=== PATIENT | female | born 1985 | race Caucasian/White ===

== ENCOUNTER → 2019-02-14 13:16 | Outpatient (CLI) | payer OTHER, SELFPAY ==
[2019-02-15 15:59] LABS: HPV Reflexed? NOT INDICATED
== END ==
PROVIDERS: Family Provider Family Medicine; PCP Family Medicine; Visit Provider Obstetrics & Gynecology
DX: Z12.4 Encounter for screening for malignant neoplasm of cervix (principal)
CPT/HCPCS: 88175; G0145

== ENCOUNTER → 2020-03-13 12:26 | Outpatient (CLI) | payer BC, SELFPAY ==
[2017-01-11 12:00] VITALS: BMI 28.8
[2020-03-13 13:08] LABS: Absolute Lymphocyte Count 1.85 X10^3/uL (0.83-4.51); Absolute Neutrophil Count 8.6 X10^3/uL (2.0-7.7); Basophil# 0.05 X10^3/uL; Basophil% 0.4 % (0-1); Eosinophil# 0.29 X10^3/uL; Eosinophils% 2.6 % (0-5); Hematocrit 45.6 % (37-47); Hemoglobin 15.2 g/dL (12.0-15.0); Lymphocyte # 1.85 X10^3/ul (4.0); Lymphocyte % 16.4 % (19-41); Mean Corp Hgb Conc 33.3 g/dL (32-36); Mean Corpuscular Hgb 29.8 pg (27.0-32.0); Mean Corpuscular Volume 89.4 fL (81-99); Mean Platelet Vol. 11.5 fl (6.2-12.0); Monocyte# 0.45 X10^3/uL; NRBC Flagged by Analyzer 0 % (0-5); Neutrophil # 8.56 X10^3/uL (2.7-7.7); Neutrophil % 75.8 % (47-70); Platelet Count 243 K/mm3 (150-450); RBC Distribution Width CV 13.2 % (11.6-14.6); White Blood Count 11.3 K/mm3 (4.4-11.0)
[2020-03-13 13:35] LABS: Thyroid Stim Hormone (TSH) 1.65 uIU/mL (0.358-3.74)
[2020-03-13 13:54] LABS: Color, Urine Yellow (Yellow); Glucose, Dipstick Normal (Normal); Ketone-Dipstick 5 mg/dl (Negative); Leukocyte Esterase-Dipstick Negative /ul (Negative); Nitrite-Dipstick Negative (Negative); Occult Blood-Urine Negative /ul (Negative); Protein-Dipstick Negative (Negative); Specific Gravity, Urine 1.025 (1.002-1.030); Urine Bilirubin Dipstick Negative (Negative); Urine Clarity Clear (Clear); Urine Urobilinogen 1 mg/dl (Normal)
[2020-03-13 14:01] LABS: Amphetamine Urine VISTA NEGATIVE (<1000 ng/mL); Barbiturate Urine VISTA NEGATIVE (< 200 ng/mL); Benzodiazepine Urine VISTA NEGATIVE (< 200 ng/mL); Cocaine Urine VISTA NEGATIVE (< 300 ng/mL); Ecstacy Urine VISTA NEGATIVE (< 500 ng/mL); Methadone Urine VISTA NEGATIVE (< 300 ng/mL); PCP Urine VISTA NEGATIVE (< 25 ng/mL); THC Urine VISTA NEGATIVE (< 50 ng/mL); Vista UDS pH Range 5
[2020-03-13 14:06] LABS: HIV - WCH Non-Reactive (Nonreactive); Hepatitis B Surface Antigen Non-Reactive (Nonreactive); Hepatitis C Antibody Non-Reactive (Nonreactive); Rubella IgG 10.2 IU/mL
[2020-03-13 16:04] LABS: Chlamydia Trachomatis by PCR Negative (Negative); Neisserai gonorrhoeae by PCR Negative (Negative); Probe Check PASS; Sample Adequacy Control PASS; Specimen Processing Control PASS
[2020-03-19 04:31] LABS: Prenatal RPR NONREACTIVE (NONREACTIVE)
== END ==
PROVIDERS: PCP Nurse Practitioner Primary Care; Referring Provider Obstetrics & Gynecology; Visit Provider Obstetrics & Gynecology
DX: Z34.81 Encounter for supervision of other normal pregnancy, first trimester (principal)
CPT/HCPCS: 36415; 80307; 81002; 84443; 85025; 86703; 86762; 86803; 87340; 87491; 87591

== ENCOUNTER → 2020-07-16 06:56 | Outpatient (CLI) | payer BC, SELFPAY ==
[2020-07-16 07:44] LABS: Glucose 94 mg/dL (74-106)
[2020-07-16 09:51] LABS: Glucose 120 mg/dL (74-106)
[2020-07-16 14:24] LABS: Hemoglobin 11.8 g/dL (12.0-15.0); Mean Corp Hgb Conc 32.8 g/dL (32-36); Mean Corpuscular Hgb 30.6 pg (27.0-32.0); Mean Corpuscular Volume 93.3 fL (81-99); Mean Platelet Vol. 12.6 fl (6.2-12.0); Platelet Count 192 K/mm3 (150-450); RBC Distribution Width CV 14.3 % (11.6-14.6); RBC Distribution Width SD 48.2 fl (35.1-43.9); Red Blood Count 3.86 M/mm3 (4.2-5.4)
== END ==
PROVIDERS: PCP Nurse Practitioner Primary Care; Referring Provider Obstetrics & Gynecology; Visit Provider Obstetrics & Gynecology
DX: Z34.82 Encounter for supervision of other normal pregnancy, second trimester (principal)
CPT/HCPCS: 36415; 82947; 85027; 86850

== ENCOUNTER → 2020-09-03 16:47 | Outpatient (CLI) | payer BC, SELFPAY ==
[2017-01-11 12:00] VITALS: BMI 28.8
[2020-09-03 19:40] LABS: Group B Strep DNA By PCR Negative (Negative); Internal Control PASS; Probe Check PASS; Specimen Processing Control PASS
== END ==
PROVIDERS: PCP Nurse Practitioner Primary Care; Visit Provider Obstetrics & Gynecology
DX: Z36.85 Encounter for antenatal screening for Streptococcus B (principal)
CPT/HCPCS: 87081; 87653

== ENCOUNTER 2020-09-05 01:30 | Inpatient (IN) | payer BC, SELFPAY ==
[2017-01-11 12:00] VITALS: BMI 28.8
[2020-09-05] VITALS (23 sets, daily range): BP systolic 95–130; BP diastolic 51–80; PULSE 56–100; RESP 14–18; TEMP 36–36.8; O2SAT 97–100; BMI 29.6
--- NOTE | 2020-09-05 | PLAC_PTH ---
PATIENT: MICALEA INFANTE LOC: WP U#:[id number] AGE/SX: 34/F ROOM: WP007 RE09/05/[address]: Dr. Kem Ac MD : 1985 BED: 1 DIS: 09/06/2020 SPEC #: [id number] RECD: 09/05/20 14:27 STATUS: TYRA REQ #: [id number] GRIFFIN: 09/05/20 00:[address]: Kem Ac DEPT: SURGICAL PATHOLOGY RECD BY: Inderjit Martinez ENTERED: 09/07/20 10:18 SP TYPE: PLACENTA OTHR DR: Leti Cardozo, STAFF FORESTER-C Tissues: Placenta, NOS Procedures: Surgery Specimen Level V HEADER OPERATION: Repeat section PRE-OP DIAGNOSIS: Labor TISSUE SUBMITTED: Placenta MICROSCOPIC DIAGNOSIS Placenta: Placental disc - third trimester placenta (737 gm). - A focal area of intraparenchymal hemorrhage (1 cm in greatest dimension). Membranes - no pathologic diagnosis. Umbilical cord - three blood vessels and no pathologic diagnosis. KODY:radhames 09/08/20 MICROSCOPIC DESCRIPTION Slides are reviewed. GROSS DESCRIPTION SPECIMEN: PLACENTA / CLINICAL INFORMATION: A. Weight: 3.47 kg B. Gestational Age: 36 weeks C. Sex: Female PLACENTAL WEIGHT (POST FIXATION): 737 gm PLACENTAL DIMENSIONS: 20 x 22 x 4 cm PLACENTAL SHAPE: Usual ovoid PLACENTAL WEIGHT FOR GESTATIONAL AGE: >99th percentile MEMBRANES - Present A. Insertion: Marginal B. Site of rupture from edge: At edge of placental disc C. Color of membrane: Romano-santos D. Abnormalities: None UMBILICAL CORD - Present A. Color: Romano-santos B. Insertion: Central C. Length: 37 cm D. Diameter: 1.3 cm E. Number of vessels: Three F. Abnormalities: None PLACENTAL DISC - Present A. Color of surface: Romano-santos B. surface abnormalities: None C. Maternal cotyledons: Mostly intact with minimal tears. A few blood clots are noted on the maternal surface. D. Attached retro placental clot: No clot E. Cut surface: Dark red and spongy F. Lesions: Sections reveal a romano, indurated area measuring 1 cm in greatest dimension. The maternal surface is disrupted in this area. G. Separate clot: Absent SECTIONS SUBMITTED: 1. Membrane roll 2. Cord, maternal end 3. Cord, end 4. Placental disc, and maternal surfaces, lesion 5. Placental disc, and maternal surfaces 6. Placental disc, and maternal surfaces SJ:radhames 09/07/20 TC:5 CPT: 52750
[2020-09-05 02:12] LABS: Hematocrit 40.4 % (37-47); Hemoglobin 13.7 g/dL (12.0-15.0); Mean Corp Hgb Conc 33.9 g/dL (32-36); Mean Corpuscular Volume 88.4 fL (81-99); Mean Platelet Vol. 13.5 fl (6.2-12.0); NRBC Flagged by Analyzer 0 % (0-5); Platelet Count 162 K/mm3 (150-450); RBC Distribution Width CV 14.1 % (11.6-14.6); Red Blood Count 4.57 M/mm3 (4.2-5.4); White Blood Count 16.2 K/mm3 (4.4-11.0)
[2020-09-05 02:14] LABS: Absolute Lymphocyte Count 3.46 X10^3/uL (0.83-4.51); Absolute Neutrophil Count 11.6 X10^3/uL (2.0-7.7); Basophil% 0.5 % (0-1); Eosinophil# 0.24 X10^3/uL; Eosinophils% 1.4 % (0-5); Lymphocyte # 3.46 X10^3/ul (4.0); Lymphocyte % 20.9 % (19-41); Monocyte# 1.03 X10^3/uL; Monocyte% 6.2 % (0-10); Neutrophil # 11.57 X10^3/uL (2.7-7.7); Neutrophil % 69.8 % (47-70)
[2020-09-05 02:15] LABS: Basophil# 0.08 X10^3/uL
[2020-09-05] MEDS: Cefazolin 2 GM in 0.9% Normal Saline 100 ML IV (02:35)
--- NOTE | 2020-09-05 02:45 | NURSING ---
Report received form Hanna JAMES, taking over pt care at this time.
--- NOTE | 2020-09-05 03:52 | PCM.HP.BLA ---
History and Physical Date of Admission: 09/05/20 ACOG ANTEPARTUM RECORD - HISTORY AND PHYSICAL (09/05/2020) Name: MICAELA INFANTE History of This : This is a 34-year-old G2, P1 who presents to labor and delivery with ruptured membranes and late stage active labor. care is remarkable for a prior section for failure to progress after 3 hours of pushing. Repeat was planned. Patient is at 36+4 weeks gestation today. OB Physician: PHI 's Physician: NIRAV mandel ...................................................................... : 1985 Age: 34 Address: [address] [place] [address] Phone: H) [phone] Insurance Carrier: [employer] [facility] [id number] Emergency Contact: SHIRAZ SANTINOJERRYWilla [phone] ...................................................................... Final OSIRIS: 09/29/20 By Ultrasound: 11 weeks 3 days PARITY: (G-Total Pregnancies P-Fullterm,Premature,Induced AB,Spont AB, Ectopics, Multiple,Living) OSIRIS CONFIRMATION: By LMP: 04/13/16 Final OSIRIS: 09/29/20 OB PROBLEM LIST: Probably wishes RCS over TOLAC. declines AFP also declines CF FOB with Cerebral Palsy Plans FBS and 2 hr PP instead of 1 hour GTT --FBS and 2 hour PP normal. Prior for FTP after 3.5 hours pushing; discussed vs Repeat -- plan R- ALLERGIES: Codeine Intolerance-unknown MEDICATIONS: folic acid 1 mg tablet One pill by mouth once a day iron 18 mg tablet One pill by mouth once a day omeprazole 20 mg capsule,delayed release One pill by mouth once a day Supplement (s) [No Strength] As Directed plexus vitamin Supplement (s) [No Strength] Plexus, Slim, Bio Cleanse, Pro Bio 5 SOCIAL HISTORY: Smoking - Never Alcohol Use - None Diet - caffeine < 2 drinks per day and dairy and gluten free. water- goal 100. Lifestyle - Exercise - walking and 2 m q am. 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 Illicit Drug Use - denies use of street drugs Sexual Activity - Residence - lives with Hours Worked - 50 Spouse-Sig Other Name - Robin (has CP.) Spouse-Sig Other Occupation - TOOL MACHINIST - [employer] Spouse-Sig Other Phone No - [phone] cell Children Name(s) - Tahmina (ARIEL) PRIOR DELIVERY HISTORY DEL DATE GEST LAB WT LB WT OZ TYPE ANES LABOR TX 27 Oct 17 39 20 8 0 C-Sec Epidural No ANTEPARTUM FLOW CHART VISIT GE RTC FU F F CO U U DATE WK MD WKS HT PN HR M SS BP ED WT CO GL D EF ST __ ____ ___ __ __ ___ __ __ __ ___ __ __ __ ___ __ 17 Aug JMW 1 36 V + + 120/74 0 178 - - ft 50 hi Aug JMW 2 34 + + 128/60 sl 179 - - Jul JM 2 32 V + + 122/66 0 175 ne ne Jul 16 JMW 3 29 + + 102/60 sl 171 tr ne Jul 13 JMW 3 26 + + 120/62 0 168 - - Jun 10 JMW 4 23 + + / 0 May 07 JMW 4 20 + + 110/66 0 160 - - Mar 31 JMW 5 14 + + 110/62 0 154 - - ANTEPARTUM NOTE(S): Sep 03 2020: GBS and LARC Aug 20 2020: Good FM,Feeling Well Aug 06 2020: Jul 16 2020: FBS,2 Hr PP ok; ck CBC and T and S Jun 24 2020: feeling well. Declines glucose testing. AM Jun 03 2020: US OK, good FM May 14 2020: no complaints and U/S Apr 03 2020: Nausea & Fatigue Better, COMPREHENSIVE ANTEPARTUM NOTE(S): Sep 03 2020: Micaela is here for a PNV. Good FM. No edema. No concerns expressed at this time. Has questions about covid precaution in L. GBS and LARC today. Consent signed. LARC reviewed and pt is opting for Mirena IUD. MK Aug 06 2020: Micaela is here for PNV. Good FM. States she feels really good. No edema noted. Urine dipped neg and neg. Having BH CTX. No questions for today. LSS Aug 06 2020: 32wks, no complaints. JM Jul 16 2020: Jose is here for PNV. Had her fasting and 2 hr blood sugar drawn this morning. They were 94 and 120 respectively. States good FM. No swelling in hands but slight in ankles. Feels great without N/V. Urine dipped for tr and neg. LSS May 14 2020: Micaela is here for a PNV with SO. Feeling FM. No edema present. U/S today, waiting for of baby to find out gender. No complaints or concerns expressed. MK Apr 07 2020: NOB TELEHEALTH: Kamilla is a 34 year old G 2 P 1 with OSIRIS 1-12--21 planning a RCS at [facility] with spinal, using [facility] [employer] [place] for post disch ped care and to breastfeed. 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 Her , Robin is tool design drafter at [employer] in [place]. They are pleased about the . Kamilla is allergic to Codeine and has some environmental allergies especially in the summer. She is not allergic to latex. She's a lifetime non smoker, non drinker and denies street drug use. She is on a no dairy, no gluten diet with < 2 servings of caffeine daily and tries for 100 oz of water daily or three liters. She is active with her family and tries to walk two miles every morning. Of note in Genetic Screening form is that Robin has Cerebral Palsy. She declines AFP and CF tests. Warning signs in pg reviewed as well as wearing her seatbelt very low on her abd, reaching the office after hours, OTC meds ok to take if needed, lifting restriction of 25# with understanding voiced. She has a copy of What to Expect. They have cats but she does not deal with the litter. US and labs done on previous appt. Her medical history includes chickenpox, IBS, fibromyalgia, tonia knee surgery and a maia. Her PCS was due to a long second stage with FTP. The baby has low blood sugar and was in the NICU briefly. Enc to call with any concerns or questions they may have. Markus JAMES. NEW Mar 13 2020: ok Mar 13 2020: Micaela is being seen for missed menses. is with pt for visit. . UPT in office is positive. LMP is unknown. Cultures to be done in office. Last pap 2019 WNL. information reviewed and given to pt. Medications and allergies are up to date. AM REVIEW OF SYSTEMS: GENERAL - Denies fever, or chills SKIN - Denies rash, new skin lesions, or change in moles EYES - Denies blurred vision, or change in visual acuity EARS - Denies ear pain, or difficulty hearing NOSE - Denies nasal congestion, discharge, or bleeding MOUTH - Denies sore throat, or difficulty swallowing NECK - Denies pain or swelling RESPIRATORY - Denies shortness of breath, cough, wheezing CARDIOVASCULAR - Denies palpitations, chest pain, orthopnea, PND, peripheral edema, syncope or claudication GASTROINTESTINAL - Denies nausea, vomiting, diarrhea, constipation, Denies abdominal pain, melena and or bright red blood GENITOURINARY - Denies dysuria, frequency of urination, urgency, or hesitancy MUSCULOSKELETAL - Denies joint or muscle pain, or back pain NEUROLOGICAL - Denies localized numbness, weakness, or tingling PSYCHIATRIC - Denies depression, anxiety, substance abuse or suicide attempts ENDOCRINE - Denies heat or cold intolerance, weight loss or gain, increasing thirst HEMATO-IMMUNOLOGIC - Denies easy bruising, bleeding, oral ulcerations or recurrent infections GENETICS SCREENING: Age 35+ years: Yes Thalassemia: No Neural Tube Defect: No Down Syndrome: No YARIEL-SACHS: No Sickle Cell Disease: No Hemophilia: No Musc. Dystrophy: No Cystic Fibrosis: No-declines screening Matthew Chorea: No Mental Retardation: No Fragile X: No Other genetic: No Other defects: No SABs/still births: No Drugs since LMP: No INFECTION HISTORY: High risk AIDS: No High risk Hepatitis: No Exposed to TB: No Exposed to Herpes: No Rash/viral illness since LMP: No History of STD: No MENSTRUAL HISTORY: *Menses Amount/Duration: 3-4 DAYSMenses Regularity: RegularFrequency: monthlyMenarche (Age Onset): 10* PAST SUMMARY: PARITY: 1. Total Pregnancies............ 2 2. Full Term Pregnancies........ 1 3. Premature.................... 0 4. Abortions - Induced.......... 0 5. Abortions - Spontaneous...... 0 6. Ectopics..................... 0 7. Multiple Births.............. 0 8. Living Children.............. 1 PAST #1: Date of :.................. 11/14/16 Gestation Weeks:................ 39 Length of labor(hours):......... 20 Sex:............................ F Weight-lbs:............... 8 Weight-oz:................ 0 Type of Delivery:............... C-Sect Type of Anesthesia:............. Epidural Place of Delivery:.............. [place] Treatment of Labor?:.... No Comment: NICU PHYSICAL EXAMINATION General Appearence: 34 yo female in no acute distress Vital Signs: AF, VSS Heart: RRR without rubs or gallops Lungs: CTA x 2 Breasts: deferred Abdomen: gravid Pelvis: Cervix: Presentation: cephalic Station: Fetus: Size: AGA Movement: present Heart: present Labs for : MICAELA INFANTE since 01/03/2020 ORDER DATEIN DESCRIPTION VALUE UNITS RANGE A+ COMMENT TYPE AND SCREEN 09/05/20 Reason for Type AND Screen/Red Cells: Labor [facility]~[address] [place], [address]~ BLOOD TYPE GEL B POSITIVE N ANTIBODY SCREEN NEGATIVE N CBC W/DIFF, AUTOMATED 09/05/20 NOTE Original Ordering Provider: Catherine Ac WBC 16.2 K/mm3 4.4-11.0 H RBC 4.57 M/mm3 4.2-5.4 HGB 13.7 g/dL 12.0-15.0 HCT 40.4 % 37-47 MCV 88.4 fL 81-99 MCH 30.0 pg 27.0-32.0 MCHC 33.9 g/dL 32-36 RDW CV 14.1 % 11.6-14.6 RDW SD 45.0 fl 35.1-43.9 H PLT 162 K/mm3 150-450 MPV 13.5 fl 6.2-12.0 H NEUT% 69.8 % 47-70 LY% 20.9 % 19-41 MONO% 6.2 % 0-10 EO% 1.4 % 0-5 BASO% 0.5 % 0-1 IM GRAN % 1.200 % 0.0-0.9 H IG% - Immature Granulocytes (promyelocytes, myelocytes and metamyelocytes) > 1% indicates that a LEFT SHIFT is Present. ABSOLUTE NEUT 11.6 X10 3/uL 2.0-7.7 H ABSOLUTE LYMPH 3.46 X10 3/uL 0.83-4.51 NRBC, FLAGGED 0 % 0-5 GROUP B STREP DNA BY PCR 09/03/20 NOTE Original Ordering Provider: Catherine Ac GBS TEST RESULT Negative Negative ANTIBODY SCREEN 07/16/20 [facility]~[address] [place], [address]~ ANTIBODY SCREEN NEGATIVE N Reviewed by CATHERINE CBC-COMPLETE BLOOD CNT NO DIFF 07/16/20 NOTE Original Ordering Provider: Catherine Ac WBC 12.0 K/mm3 4.4-11.0 H RBC 3.86 M/mm3 4.2-5.4 L HGB 11.8 g/dL 12.0-15.0 L HCT 36.0 % 37-47 L MCV 93.3 fL 81-99 MCH 30.6 pg 27.0-32.0 MCHC 32.8 g/dL 32-36 RDW CV 14.3 % 11.6-14.6 RDW SD 48.2 fl 35.1-43.9 H PLT 192 K/mm3 150-450 MPV 12.6 fl 6.2-12.0 H Reviewed by CATHERINE GLUCOSE 07/16/20 NOTE Original Ordering Provider: Catherine Ac GLU 120 mg/dL 74-106 H Fasting Glucose result from 100 to 125 mg/dL suggests IMPAIRED HOMEOSTASIS per A.D.A. criteria. Please note revised GLUCOSE reference range effective 10/20/2017. Reviewed by CATHERINE GLUCOSE 07/16/20 NOTE Original Ordering Provider: Catherine Ac GLU 94 mg/dL 74-106 Please note revised GLUCOSE reference range effective 10/20/2017. Reviewed by CATHERINE RPR 03/13/20 NOTE Original Ordering Provider: Catherine Ac RPR NONREACTIVE NONREACTIVE Reviewed by CATHERINE T AND S-NO CHARGE W/PNP 03/13/20 Reason for Type AND Screen/Red Cells: Surgery? N [facility]~[address] [place], [address]~ BLOOD TYPE GEL B POSITIVE N AB SCREEN GEL NEGATIVE N Reviewed by CATHERINE HEPATITIS C ANTIBODY 03/13/20 NOTE Original Ordering Provider: Catherine Ac HEPATITIS C AB Non-Reactive Nonreactive Non Reactive: < 0.8 Equivocal: >/= 0.8 to < 1.0 Reactive: >/= 1.0 The CDC recommends that a reactive/equivocal HCV antibody result be followed up by the HCV Nucleic Acid Amplification test (115466) Reviewed by CATHERINE HEPATITIS B SURFACE ANTIGEN 03/13/20 NOTE Original Ordering Provider: Catherine Ac HEPB SURFACE AG Non-Reactive Nonreactive Reviewed by CATHERINE HIV - [facility] 03/13/20 NOTE Original Ordering Provider: Catherine Ac HIV - [facility] Non-Reactive Nonreactive Reviewed by CATHERINE RUBELLA IGG 03/13/20 NOTE Original Ordering Provider: Catherine Ac RUBELLA IGG 10.2 IU/mL Antibody results Interpretation of Immune Status < 5 IU/ml Presumed Non-immune 5 - < 10 IU/ml Equivocal > or = 10 IU/ml Presumed Immune Reviewed by CATHERINE THYROID STIM HORMONE (TSH) 03/13/20 NOTE Original Ordering Provider: Catherine Ac TSH 1.65 uIU/mL 0.358-3.74 Reviewed by CATHERINE CBC W/DIFF, AUTOMATED 03/13/20 NOTE Original Ordering Provider: Catherine Ac WBC 11.3 K/mm3 4.4-11.0 H RBC 5.10 M/mm3 4.2-5.4 HGB 15.2 g/dL 12.0-15.0 H HCT 45.6 % 37-47 MCV 89.4 fL 81-99 MCH 29.8 pg 27.0-32.0 MCHC 33.3 g/dL 32-36 RDW CV 13.2 % 11.6-14.6 RDW SD 43.0 fl 35.1-43.9 PLT 243 K/mm3 150-450 MPV 11.5 fl 6.2-12.0 NEUT% 75.8 % 47-70 H LY% 16.4 % 19-41 L MONO% 4.0 % 0-10 EO% 2.6 % 0-5 BASO% 0.4 % 0-1 IM GRAN % 0.800 % 0.0-0.9 IG% - Immature Granulocytes (promyelocytes, myelocytes and metamyelocytes) > 1% indicates that a LEFT SHIFT is Present. ABSOLUTE NEUT 8.6 X10 3/uL 2.0-7.7 H ABSOLUTE LYMPH 1.85 X10 3/uL 0.83-4.51 NRBC, FLAGGED 0 % 0-5 Reviewed by CATHERINE URINE DRUG SCREEN (VISTA) 03/13/20 NOTE Original Ordering Provider: Catherine Ac TO BE CONFIRMED CONFIRMATORY TESTING FOR ALL POSITIVE URINE DRUG SCREEN RESULTS WILL ONLY BE SENT OUT UPON PHYSICIAN ORDER. VISTA Urine Drug Screen methods provide only preliminary analytical test results. A more specific alternate chemical method must be used in order to obtain a confirmed analytical result. Gas chromatography/mass spectrometery (GC/MS) is the preferred confirmatory method. Clinical consideration and professional judgement should be applied to any drug of abuse test result, particularly when preliminary positive results are used. URINE TCA TESTING MUST BE ORDERED SEPARATELY. USE TEST MNEMONIC: UTCA Reviewed by CATHERINE CT/NG WC BY PCR 03/13/20 NOTE Original Ordering Provider: Catherine Ac CHLAM TRAC PCR Negative Negative NG BY PCR Negative Negative Reviewed by CATHERINE URINE DRUG SCREEN (VISTA) 03/13/20 NOTE Original Ordering Provider: Catherine Ac TO BE CONFIRMED CONFIRMATORY TESTING FOR ALL POSITIVE URINE DRUG SCREEN RESULTS WILL ONLY BE SENT OUT UPON PHYSICIAN ORDER. VISTA Urine Drug Screen methods provide only preliminary analytical test results. A more specific alternate chemical method must be used in order to obtain a confirmed analytical result. Gas chromatography/mass spectrometery (GC/MS) is the preferred confirmatory method. Clinical consideration and professional judgement should be applied to any drug of abuse test result, particularly when preliminary positive results are used. URINE TCA TESTING MUST BE ORDERED SEPARATELY. USE TEST MNEMONIC: UTCA VISTA UDS PH 5 AMPHETAMINES NEGATIVE <1000 ng/mL BARBITIURATES NEGATIVE < 200 ng/mL BENZODIAZIPINE NEGATIVE < 200 ng/mL COCAINE NEGATIVE < 300 ng/mL ECSTACY NEGATIVE < 500 ng/mL METHADONE NEGATIVE < 300 ng/mL OPIATES NEGATIVE < 300 ng/mL PCP NEGATIVE < 25 ng/mL THC NEGATIVE < 50 ng/mL Reviewed by CATHERINE URINALYSIS, ROUTINE (DIPSTICK) 03/13/20 NOTE Original Ordering Provider: Catherine Ac COLOR Yellow Yellow CLARITY Clear Clear GLUCOSE, UR Normal mg/dl Normal BILIRUBIN URINE Negative mg/dL Negative KETONE UR 5 mg/dl Negative H SP.GR. DIPSTX 1.025 1.002-1.030 PH UR 5.0 5.0 - 8.0 PROT DIPSTX Negative mg/dl Negative UROBILI 1 mg/dl Normal H NITRITE UR Negative Negative OCCULT BLOOD-UR Negative /ul Negative LEUK ESTERASE Negative /ul Negative Reviewed by CATHERINE PROVIDER SIGNATURE ( REQUIRED) Impression /Plan: 36+ week intrauterine with premature rupture of membranes and in second stage of labor. Plan was for double set up and room due to deep variable decelerations. Preparations in progress for delivery.
--- NOTE | 2020-09-05 03:56 | OP.PCM_ITS ---
Delivery Classification: REBECCA Final OSIRIS: 09/29/20 Final OSIRIS Source: US <20 weeks Gestational age: 36 Weeks and 4 Days doctor who attended delivery (if requested by OB): Librado Pavon decorator street and building: Leonie Palencia Type of Anesthesia:: Spinal - With Duramorph Date of Procedure: 09/05/20 Pre-Operative Diagnosis: Prior Section Post-Operative Diagnosis: Prior Section Description of Procedure: Surgeon: Kem Ac MD, FACOG Anesthesia: Dr. Darek Cabrera MD Procedure: Repeat Low Transverse Cervical Caesarean Section Findings: Viable female infant with Apgars of 8/9 in occiput anterior presentation with clear amniotic fluid and normal three-vessel placenta. Umbilical cord was tangled around the baby's legs. There was noted to be approximately 3 x 10 cm uterine window present before making the uterine incision. Indication: This is a 34-year-old who presents for her second at 36+4 weeks gestation. care has otherwise been uneventful. The patient presented this evening with premature rupture of membranes and was complete and pushing. Deep decelerations were noted with pushing so she was taken to the room for a double set up. After pushing for approximately an hour with no progress the patient requested that we proceed with section. She pushed for 3 hours prior to her first without progress and did not want to continue pushing with the same result possible. The patient has been counseled regarding the risk and indications of this procedure including the possibility of bleeding infection and injury to surrounding structures such as bowel bladder. All questions were answered. Procedure: After spinal anesthesia was placed, the patient was prepped and draped in usual sterile fashion; a Schuster catheter had been previously placed. The abdomen was entered through the patient's prior Pfannenstiel incision and peritoneum was entered bluntly. After developing a bladder flap on the lower uterine segment a low transverse incision was made on the uterus and head was delivered onto the operative field the nose mouth and oropharynx were bulb suctioned. Subsequently a viable female was born with Apgars of 8/9. The infant was noted to cry move all extremities vigorously on the operative field. The umbilical cord was doubly clamped and ligated and handed to the nursery personnel who were present for the delivery. Placenta was delivered and noted to be 3 vessels and normal. Uterus was exteriorized and remaining placental tissue was removed. The uterus was then closed in 2 layers first with running locked 0 Vicryl suture followed by a second imbricating layer with 0 Vicryl suture. 0 Vicryl suture was then used in a horizontal mattress interrupted fashion to affect final hemostasis of the uterine incision line. Normal fallopian tubes and ovaries were visualized and the uterus was returned to the pelvis. Hemostasis was noted and rectus abdominis muscles were reapproximated in the midline with interrupted Number 0 Vicryl suture in a horizontal mattress fashion. Fascia was closed with running Number 1 PDS Strata fix suture. Subcutaneous tissue was irrigated with copious amouts of saline solution and then closed with running 3-0 Vicryl suture. Skin was closed with 4-0 monocryl suture in a running subcuticular fashion. Steri strips and a Mepilex dressing were placed across the incision. The patient tolerated the procedure well and was taken to the recovery room in satisfactory condition. Sponge, needle, and instrument counts were all reportedly correct. EBL was 500 cc. Ancef 2 gms IV was given prior to the pr ocedure. Spicemen to Pathology: None Complications: None Amniotic Membrane Rupture Type: Spontaneous Amniotic Fluid Description: Clear Placenta Disposition: [facility] Specimen(s) sent to pathology: None Drain: Schuster to straight drain Cord Entanglement: None Cord Vessel Description: 3 Vessels Esitmated Blood Loss (ml): 500 cc Gender: Female (1 minute): 8 (5 minute): 9 Antibiotic Given: Ancef 2 grams IV x1 Pt instructed on risks of surgery: Bleeding, Infection, Injury to surrounding structure(s) including bowel and bladder Complications: None - Admit VTE Documentation VTE Mechan Device Prophylaxis: SCD's
--- NOTE | 2020-09-05 04:06 | DCINST_ITS ---
Discharge Diet: No Restrictions Discharge Activity: May not drive while taking narcotic pain medications., May Shower, May Take a Tub Bath May resume sexual activity in: 4-6 weeks Lifting Restrictions: 20 pounds Additional Activity Instructions:: Nothing in the vagina for 4-6 weeks. You may return to work/school in 6 weeks. Call your doctor if your incision/area has: Continuous Slow Oozing, Sudden Increased Bleeding, Increased Pain/ Swelling, Increased Redness, Foul Smelling Discharge Call your doctor if you observe: Fever of 101 or Higher, Inability to urinate, Inability to have a bowel movement, Using more than one pad per hour Additional Instructions: If you experience any of the following, contact your healthcare provider. * Bleeding that soaks a pad every hour for 2 hours * Fever 100.4 or higher * Unrelieved incision or abdominal pain * Swelling, redness, discharge or bleeding from your incision or episiotomy site * Your incision begins to separate * Problems urinating (including inability to urinate or burning while urinating). * Visual changes * Severe headache * Flu-like symptoms * Pain or redness in one of both of your breasts * Pain, warmth, tenderness or swelling in your legs, especially the calf area * Frequent nausea and vomiting * Symptoms of depression or anxiety If you experience any of the following, call 911 or go to the nearest Emergency Room. * Chest pain * Problems breathing * Seizure activity * Partial or complete paralysis of a body part, slurred speech, weakness or drooping of the face, or a sudden inability to walk or hold your balance Allergies/Adverse Reactions: Allergies codeine Adverse Reaction (Verified 09/05/20 03:16) Other pt states passes out Medications to take at Discharge Docusate Sodium [Colace Clear] 01/11/17 Ferrous Sulfate 325 mg PO DAILY 01/11/17 Flonase Allergy Relief 50 mcg NASAL DAILY 01/11/17 Flonase Allergy Relief 50 mcg NASAL DAILY 01/11/17 Fluticasone Propionate [Flonase Allergy Relief] 01/11/17 Ibuprofen [Motrin] 800 mg PO TID PRN PRN #30 tablet 01/11/17 Omeprazole [Prilosec] 20 mg PO DAILY 01/11/17 Oxycodone [Oxyir] 10 mg PO Q6H PRN PRN #30 tablet 01/11/17 Prenatabs FA 1 tab PO DAILY 01/11/17 Pyridoxine HCl [Vitamin B6] 50 mg PO DAILY 01/11/17 Vitamin D3 1,000 units PO DAILY 01/11/17 Docusate Sodium [Colace] 100 mg PO BID PRN PRN #60 cap 09/05/20 Oxycodone [Oxyir] 5 mg PO Q6H PRN PRN 7 Days #20 tablet 09/05/20 The following prescriptions were given: Docusate Sodium [Colace] 100 mg PO BID PRN PRN #60 cap PRN Reason: Constipation Transmission Status: Pending to [facility] Oxycodone [Oxyir] 5 mg PO Q6H PRN PRN 7 Days #20 tablet PRN Reason: Pain Score 6-10 Transmission Status: Sent to [facility] Follow-Up: Call to make an appointment with your doctor for an incision check in 1-2 weeks. You will also need a 6 week post- follow up appointment. Test results from this visit will be discussed in further detail at your follow- up appointment, if applicable. Please Follow Up With: Kem Ac MD - [phone] When: Call to make an appointment for an incision check in 2 weeks. Primary Care Physician: Leti Cardozo [employer], [employer] [Primary Care Provider] -
[2020-09-05] MEDS: Oxytocin 30 units/NS 500 ml 30 UNITS/500 ML IV.SOLN 167 UNITS IV (04:09)
[2020-09-05] MEDS: Acetaminophen 500 MG Tablet 1000 MG PO ×4 (05:05→22:17)
[2020-09-05] MEDS: Lactated Ringers 1,000 ML 100 ML IV (06:57)
[2020-09-05] MEDS: Ketorolac 30 MG/ML Syringe IV (09:08)
[2020-09-05] MEDS: Cefazolin 1 GM/50 ML BAG IV ×2 (10:59→18:37)
[2020-09-05] MEDS: Pantoprazole Sodium 20 MG Tablet PO (10:59)
[2020-09-05] MEDS: Naproxen 250 MG Tablet 500 MG PO ×2 (16:30→22:17)
[2020-09-06 00:06] VITALS: BP 96/45; PULSE 69; RESP 14; TEMP 36.9
--- NOTE | 2020-09-06 00:08 | NURSING ---
pt denies feeling dizzy or lightheaded. pt states my BP normally runs low.
[2020-09-06 04:10] VITALS: BP 91/54; PULSE 74; RESP 14; TEMP 36.6
[2020-09-06 04:29] LABS: Hematocrit 31.2 % (37-47); Hemoglobin 10.5 g/dL (12.0-15.0); Mean Corp Hgb Conc 33.7 g/dL (32-36); Mean Corpuscular Hgb 30.1 pg (27.0-32.0); Mean Corpuscular Volume 89.4 fL (81-99); Mean Platelet Vol. 13.4 fl (6.2-12.0); Platelet Count 172 K/mm3 (150-450); RBC Distribution Width CV 14.3 % (11.6-14.6); RBC Distribution Width SD 45.9 fl (35.1-43.9); Red Blood Count 3.49 M/mm3 (4.2-5.4); White Blood Count 15.6 K/mm3 (4.4-11.0)
[2020-09-06] MEDS: Acetaminophen 500 MG Tablet 1000 MG PO ×2 (05:16→10:59)
[2020-09-06] MEDS: Naproxen 250 MG Tablet 500 MG PO ×2 (05:16→13:55)
[2020-09-06 08:29] VITALS: BP 99/43; PULSE 72; RESP 16; TEMP 36.8; O2SAT 99
--- NOTE | 2020-09-06 09:54 | PN.OBGYN_ITS ---
Subjective: Patient without complaints. Tolerating diet well. Ambulating in room well. Minimal vaginal bleeding. Wants to go home today if baby is able to go. Objective: Wound is clean, dry, intact with Mepilex dressing in place. Good urine output. Hemoglobin okay. - Physical Exam Vitals/I&O's: Vital Signs Temp Pulse Resp BP Pulse Ox 98.3 F 72 16 99/43 L 99 09/06/20 08:29 09/06/20 08:29 09/06/20 08:29 09/06/20 08:29 09/06/20 08:29 Oxygen Delivery Method Room Air Weight: 178 lb Body Mass Index (BMI) 29.6 Intake and Output for Last 24 Hours 09/04/20 09/05/20 09/06/20 23:59 23:59 23:59 Intake Total 1615 / 1615 1000 / 1000 Output Total 6600 / 6600 1000 / 1000 Balance -4985 / -4985 0 / 0 Laboratory Results 09/06/20 03:55: WBC 15.6 H, RBC 3.49 L, Hgb 10.5 L, Hct 31.2 L, MCV 89.4, MCH 30.1, MCHC 33.7, RDW Std Deviation 45.9 H, RDW Coeff of Ilana 14.3, Plt Count 172, MPV 13.4 H Current Medications Acetaminophen (Acetaminophen 500 Mg Tablet) 1,000 mg PO Q6H [facility] Last Admin: 09/06/20 05:16 Dose: 1,000 mg Documented by: Bisacodyl (Bisacodyl 10 Mg Suppository) 10 mg RECTAL UD PRN PRN Reason: If no BM Fluticasone Propionate (Fluticasone 0.05% 1 [place] Nasal.Sry) 2 spray NASAL DAILY [facility] Last Admin: 09/06/20 09:28 Dose: Not Given Documented by: Hydrocortisone (Hydrocortisone 2.5% Crm) 1 applic TOPICAL TID PRN PRN; Protocol PRN Reason: Discomfort Methylergonovine Maleate (Methylergonovine 0.2 Mg/Ml Ampul) 0.2 mg IM X1 PRN PRN Reason: Uterine Atony Naproxen (Naproxen 250 Mg Tablet) 500 mg PO Q8 [facility] Last Admin: 09/06/20 05:16 Dose: 500 mg Documented by: Ondansetron HCl (Ondansetron 4 Mg/2 Ml Vial) 4 mg IV Q4H PRN PRN PRN Reason: Nausea Oxycodone HCl (Oxycodone 5 Mg Tablet) 5 - 10 mg PO Q4H PRN PRN PRN Reason: Pain Score 4-10 Pantoprazole Sodium (Pantoprazole Sodium 20 Mg Tablet) 20 mg PO DAILY [facility] Last Admin: 09/06/20 09:28 Dose: Not Given Documented by: Prochlorperazine Edisylate (Prochlorperazine 10 Mg/2 Ml Vial) 10 mg IV Q6H PRN PRN PRN Reason: NAUSEA Senna/Docusate Sodium (Senna/Docusate Sodium 1 Tablet) 0 tablet PO DAILY [facility] Last Admin: 09/06/20 09:28 Dose: Not Given Documented by: Simethicone (Simethicone 80 Mg Tablet) 80 mg PO PCHS PRN PRN Reason: Indigestion/stomach pain Sodium Chloride (0.9% Saline Lock 10 Ml Syringe) 5 - 15 ml IV UD PRN PRN Reason: SALINE FLUSH Medical Necessity - Tobacco Use Smoking Status: Never smoker Assessment/Plan All Active Problems Arrest of descent, delivered, current hospitalization (Acute) Doing well postoperative day #1 status post repeat early yesterday mo rning. Will discharge to home later today if baby is able to go home. Routine home-going instructions given.
[2020-09-06 13:50] VITALS: BP 94/54; PULSE 74; RESP 16; TEMP 36.6
[2020-09-08 15:44] LABS: Pathology Specimen OB SEE PATHOLOGY REPORT
== END 2020-09-06 16:20 | disposition home or self-care (01) | DRG 788 ==
PROVIDERS: Admitting Provider Obstetrics & Gynecology; PCP Nurse Practitioner Primary Care; Referring Provider Obstetrics & Gynecology; Visit Provider Obstetrics & Gynecology
DX: O34.211 Maternal care for low transverse scar from previous cesarean delivery (principal); Z3A.36 36 weeks gestation of pregnancy; Z37.0 Single live birth; O76 Abnormality in fetal heart rate and rhythm complicating labor and delivery; O69.82X0 Labor and delivery complicated by other cord entanglement, without compression, not applicable or unspecified; O42.913 Preterm premature rupture of membranes, unspecified as to length of time between rupture and onset of labor, third trimester
CPT/HCPCS: 59025; 59050; 85025; 85027; 86850; 86900; 86901; 88307; 99218; 99251; J7120; G0378; G0463; J2405

== ENCOUNTER → 2020-11-04 16:34 | Outpatient (CLI) | payer BC, SELFPAY ==
[2020-09-05 03:14] VITALS: BMI 29.6
[2020-11-09 13:21] LABS: HPV Reflexed? NOT INDICATED
== END ==
PROVIDERS: PCP Nurse Practitioner Primary Care; Visit Provider Obstetrics & Gynecology
DX: Z12.4 Encounter for screening for malignant neoplasm of cervix (principal)
CPT/HCPCS: 88175; G0145